=== PATIENT | female | born 1990 | race Two or more races ===

== ENCOUNTER 2024-02-01 18:54 | Emergency (ER) | payer BC, OTHER ==
[~2024-02-01] VITALS: Ht 165.1 cm; Wt 76.5 kg
[2024-02-01 19:24] VITALS: BP 132/76; PULSE 90; RESP 16; O2SAT 98
== END 2024-02-02 01:41 | disposition left against medical advice (07) ==
LOC: ER 18:54
DX: M25.511 Pain in right shoulder (principal); Z53.21 Procedure and treatment not carried out due to patient leaving prior to being seen by health care provider